=== PATIENT | male | born 1955 | race American Indian/Alaskan Native ===

== ENCOUNTER 2019-05-18 17:51 | Emergency (ER) | payer MEDICAID ==
[~2019-05-18] VITALS: Ht 182.9 cm; Wt 86.4 kg
[~2019-05-18 17:51] MED LIST: GABA-532 PO; LISI-604 PO; METF1000 PO; OMEG500C3 PO; PANT-47 PO
[2019-05-18 17:59] VITALS: BP 176/107
[2019-05-18] MEDS ORDERED: TETanus/Pertussis (Acell)/Diphther VAC/PF (Tdap-Adult) 0.5ml syringe IM ONE (19:10)
[2019-05-18] MEDS ORDERED: gentamicin 0.1% topical ointment 15gm TP SCH (19:10)
== END 2019-05-18 19:36 | disposition home or self-care (01) ==
LOC: ER 17:52
DX: S93.402A Sprain of unspecified ligament of left ankle, initial encounter (principal); S90.812A Abrasion, left foot, initial encounter; I10 Essential (primary) hypertension; E11.9 Type 2 diabetes mellitus without complications; F12.90 Cannabis use, unspecified, uncomplicated; F17.200 Nicotine dependence, unspecified, uncomplicated; Z79.899 Other long term (current) drug therapy; X50.1XXA Overexertion from prolonged static or awkward postures, initial encounter; Y93.89 Activity, other specified; Y92.89 Other specified places as the place of occurrence of the external cause; Y99.8 Other external cause status
CPT/HCPCS: 29515; 73610; 90471; 99284

== ENCOUNTER 2022-09-18 01:27 | Emergency (ER) | payer MEDICAID ==
[~2022-09-18] VITALS: Ht 182.9 cm; Wt 80.2 kg
[~2022-09-18 01:27] MED LIST changes: -LISI-604 PO; +LISI5TAB22 PO
[2022-09-18 01:35] VITALS: BP 156/70
[2022-09-18 04:17] LABS: BASOPHILS # (AUTO) 0.1 X10'3 (0-0.2); BASOPHILS % (AUTO) 0.8 % (0-1); EOSINOPHILS # (AUTO) 0.2 X10'3 (0-0.9); EOSINOPHILS % (AUTO) 2.3 % (0-6); HEMATOCRIT 44.3 % (42.0-52.0); HEMOGLOBIN 14.5 g/dl (14.0-17.9); LYMPHOCYTES # (AUTO) 2.9 X10'3 (1.1-4.8); LYMPHOCYTES % (AUTO) 30.4 % (21-51); MEAN CORPUSCULAR HGB CONC 32.8 g/dL (33.0-36.5); MEAN CORPUSCULAR VOLUME 94.3 FL (78-98); MONOCYTES # (AUTO) 0.8 X10'3 (0-0.9); MONOCYTES % (AUTO) 8.8 % (2-12); NEUTROPHILS # (AUTO) 5.5 X10'3 (1.8-7.7); NEUTROPHILS % (AUTO) 57.7 % (42-75); PLATELET COUNT 335 X10'3 (140-440); RED CELL DISTRIBUTION WIDTH 13.1 % (11.5-14.5); WHITE BLOOD COUNT 9.6 X10'3 (4.5-11.0)
[2022-09-18 04:27] LABS: ALANINE AMINOTRANSFERASE 28 U/L (12-78); ALBUMIN 4.1 G/DL (3.4-5.0); ALBUMIN/GLOBULIN RATIO 1.2 (1.1-1.5); ALKALINE PHOSPHATASE 85 IU/L (46-116); ANION GAP 12 (8-16); ASPARTATE AMINO TRANSFERASE 19 U/L (10-37); BILIRUBIN,TOTAL 0.2 MG/DL (0.1-1.0); BLOOD UREA NITROGEN 13 MG/DL (7-18); BUN/CREATININE RATIO 14.1 (5.4-32.0); CALCIUM 9.2 MG/DL (8.5-10.1); CHLORIDE 104 MMOL/L (99-107); CREATININE 0.92 MG/DL (0.60-1.10); GLUCOSE 122 MG/DL (70-104); LIPASE 366 U/L (73-393); POTASSIUM 3.9 MMOL/L (3.5-5.1); SODIUM 141 MMOL/L (135-145); TOTAL CARBON DIOXIDE 25.3 MMOL/L (24-32); TOTAL PROTEIN 7.6 G/DL (6.4-8.2); eGFR 83 ML/MIN
== END 2022-09-18 08:34 | disposition left against medical advice (07) ==
LOC: ER 01:29
DX: R10.9 Unspecified abdominal pain (principal); Z53.21 Procedure and treatment not carried out due to patient leaving prior to being seen by health care provider
CPT/HCPCS: 36415; 80053; 83690; 85025

== ENCOUNTER 2024-08-20 11:33 | Day surgery (SDC) | payer MEDICARE, MEDICAID ==
[2024-08-19 09:50] LABS: BASOPHILS # (AUTO) 0.1 X10'3 (0-0.2); BASOPHILS % (AUTO) 0.9 % (0-1); EOSINOPHILS # (AUTO) 0.1 X10'3 (0-0.9); EOSINOPHILS % (AUTO) 1.5 % (0-6); LYMPHOCYTES # (AUTO) 2.3 X10'3 (1.1-4.8); LYMPHOCYTES % (AUTO) 27.4 % (21-51); MEAN CORPUSCULAR HEMOGLOBIN 31.3 PG (27.0-31.0); MEAN CORPUSCULAR HGB CONC 33.9 g/dL (33.0-36.5); MEAN CORPUSCULAR VOLUME 92.4 FL (78-98); MEAN PLATELET VOLUME 9.3 FL (7.4-10.4); MONOCYTES # (AUTO) 0.7 X10'3 (0-0.9); MONOCYTES % (AUTO) 8.2 % (2-12); NEUTROPHILS # (AUTO) 5.1 X10'3 (1.8-7.7); PRE OP HEMATOCRIT 42.3 % (42.0-52.0); PRE OP HEMOGLOBIN 14.3 g/dL (14.0-17.9); PRE OP PLATELET COUNT 313 X10'3 (140-440); PRE OP WHITE BLOOD COUNT 8.2 10'3 (4.8-10.8); RED BLOOD COUNT 4.57 X10'6 (4.70-6.10); RED CELL DISTRIBUTION WIDTH 13.5 % (11.5-14.5)
[2024-08-19 10:02] LABS: ALBUMIN 3.9 G/DL (3.4-5.0); ALBUMIN/GLOBULIN RATIO 1.1 (1.1-1.5); ALKALINE PHOSPHATASE 74 IU/L (46-116); BLOOD UREA NITROGEN 16 MG/DL (7-18); BUN/CREATININE RATIO 12.7 (10.0-20.0); CALCIUM 9.4 MG/DL (8.5-10.1); CHLORIDE 106 MMOL/L (99-107); CREATININE 1.26 MG/DL (0.60-1.10); PRE OP ALT 41 U/L (30-65); PRE OP ANION GAP 10 (8-16); PRE OP AST 21 U/L (10-37); PRE OP BILIRUB, TOTAL 0.3 MG/DL (0.0-1.0); PRE OP GLUCOSE 189 MG/DL (70-104); PRE OP POTASSIUM 4.3 MMOL/L (3.4-5.1); PRE OP SODIUM 143 MMOL/L (135-145); TOTAL CARBON DIOXIDE 27.1 MMOL/L (24-32); TOTAL PROTEIN 7.6 G/DL (6.4-8.2); eGFR 57 ML/MIN
[~2024-08-20] VITALS: Ht 182.9 cm; Wt 79.6 kg
[2024-08-20] VITALS (8 sets, daily range): BP systolic 128–156; BP diastolic 64–86; PULSE 70–84; RESP 10–17; TEMP 97.8; O2SAT 95–100
[2024-08-20] MEDS: ceFAZolin 2gm in dextrose, iso 50 ML IV ONE (05:30)
[~2024-08-20 11:33] MED LIST changes: +ATOR20TA66 PO; +BUPR-561 PO; +EMPA25TA PO; +ERGO500093 PO; +FENO134C21 PO; +INSU100I29 SQ; -LISI5TAB22 PO; +METF-900 PO; -METF1000 PO; -OMEG500C3 PO
[2024-08-20] MEDS: famotidine 20mg tablet PO ONE (12:02)
[2024-08-20] MEDS: ringers solution, lacted 1,000 ML IV SCH (12:02)
[2024-08-20] MEDS ORDERED: sevoflurane 250ml liquid IH ONE (12:11)
[2024-08-20] MEDS ORDERED: fentaNYL/PF 50MCG/1 ML 2ML syringe ONE (12:13)
[2024-08-20] MEDS ORDERED: midazolam 1 mg/ML 2ml injection ONE (12:13)
[2024-08-20] MEDS ORDERED: meperidine/PF 25mg/ml syringe IV PRN ×3 (12:45)
[2024-08-20] MEDS ORDERED: morphine 4 MG/ML inj SYRINge IV PRN (12:45)
[2024-08-20] MEDS ORDERED: ondansetron/PF 4mg/2ml inj IV PRN (12:45)
[2024-08-20] MEDS ORDERED: ringers solution, lacted 1,000 ML IV SCH (12:45)
[2024-08-20] MEDS ORDERED: proCHLORperazine 10 MG/2 ml inj IV PRN (12:45)
[2024-08-20] MEDS ORDERED: morphine 2 MG/ML inj. syringe IV PRN (12:45)
[2024-08-20] MEDS ORDERED: propofol inj 20 ML IV ONE (13:03)
[2024-08-20] MEDS ORDERED: ondansetron/PF 4mg/2ml inj ONE (13:03)
[2024-08-20] MEDS ORDERED: rocuronium 10mg/ml inj IV ONE (13:04)
[2024-08-20] MEDS ORDERED: neostigmine methylsulfate 1 MG/ML 10ml vial ONE (13:18)
[2024-08-20] MEDS ORDERED: glycopyrrolate 0.2mg/ml inj ONE (13:18)
== END 2024-08-20 14:41 | disposition home or self-care (01) ==
LOC: PAS 11:33
PROVIDERS: ATTEND Internal Medicine Critical Care Medicine
DX: R91.1 Solitary pulmonary nodule (principal); E11.40 Type 2 diabetes mellitus with diabetic neuropathy, unspecified; K21.9 Gastro-esophageal reflux disease without esophagitis; E78.5 Hyperlipidemia, unspecified; I25.2 Old myocardial infarction; Z87.891 Personal history of nicotine dependence; Z79.84 Long term (current) use of oral hypoglycemic drugs; Z79.899 Other long term (current) drug therapy; Z90.49 Acquired absence of other specified parts of digestive tract; Z98.890 Other specified postprocedural states
CPT/HCPCS: 31623; 31624; 31627; 31628; 31629; 31653; 36415; 80053; 82948; 85025; 87015; 87070; 87102; 87116; 87206; 93005; 94760; A4618; J0690; J1100; J2250; J2405; J2704; J2710; J3010; J3490; J7120; Z7506; Z7508; Z7512; Z7610; 31622; 31625; 31654; 88108; 88173; 88305; 88313; 88341; 88342

== ENCOUNTER 2025-02-11 15:52 | Emergency (ER) | payer MEDICARE, MEDICAID ==
[~2025-02-11] VITALS: Ht 175.3 cm; Wt 75.5 kg
[~2025-02-11 15:52] MED LIST changes: -BUPR-561 PO; +BUPR-726 PO
[2025-02-11 16:02] VITALS: BP 125/80; PULSE 89; O2SAT 99
--- NOTE | 2025-02-11 16:12 | Physician Documentation ---
History of Present Illness ~ Stated Complaint: NUMBNESS Time Seen by MD: 17:35 Primary Medical Doctor: NONE Source: patient Mode of Arrival: POV Exam Limitations: no limitations HPI 69 y/o male with c/o lower back pain that radiates down left leg x 3weeks. Numbness of leg started last night. Taking flexeril and aleve "like it is cand y" which has not helped. Xray done at [facility] 2.5weeks ago. No advanced imaging. Pain severity ranges from 20/10 at worst to 8/10 at best. Currently reported to be 8/10 in severity. Patient also reports numbness on left side of face, left arm. He reports this occurred and lasted for a few minutes earlier today. Had same thing that occurred earlier this month. States speech was also "slurred." Patient did not report the numbness on left side of face or left arm in triage. No chest pain, sob, lightheadedness, syncope, headache, vision changes. Medication Reconciliation Allergies: Coded Allergies: No Known Allergies (Unverified , 10/20/10) Scheduled Atorvastatin Calcium (Atorvastatin Calcium), 1 TAB PO HS, (Reported) Bupropion HCl (Bupropion Xl), 150 MG PO QAM, (Reported) Empagliflozin (Jardiance), 25 MG PO HS, (Reported) Ergocalciferol (Vitamin D2) (Vitamin D2), 1 CAP PO Q7D, (Reported) Fenofibrate,Micronized (Fenofibrate), 1 CAP PO HS, (Reported) Gabapentin (Gabapentin), 2 CAP PO HS, (Reported) Insulin Degludec (Tresiba Flextouch U-100), 20 UNITS SQ QAM, (Reported) Metformin Hcl* (Metformin ER*), 2,000 MG PO HS, (Reported) Scheduled PRN Pantoprazole Sodium (PROTONIX tablet), 1 TAB PO DAILY PRN for indigestion/dyspepsia, (Reported) Past Medical History Past Medical History: Hypertension, Vascular Disease, Diabetes Past Surgical History: no surgical history Alcohol Use: Occasionally Drug Use: marijuana Lives In: Home Review of Systems All Other Systems at this time: Reviewed and Negative Physical Exam Physical Exam Physical Exam GENERAL: Mild distress, tearful when talking about pain. HEENT: NCAT, EOMI, PERRL, normal oropharynx, moist oral mucosa. NECK: Supple, trachea midline. CARDIAC: Regular rate and rhythm, no murmurs, rubs, or gallops. Equal distal pulses. No lower extremity edema, cap refill less than 2 seconds. RESPIRATORY: Equal breath sounds, clear to auscultation bilaterally, no respiratory distress. GASTROINTESTINAL: Non distended, soft, nontender, No guarding or rebound. MUSCULOSKELETAL: Normal range of motion, nontender, no swelling. Normal gait. NEUROLOGICAL: Major flexor and extensor muscles of LE decreased at 3-4/5 left leg. Right leg strength 5/5. Normal finger to nose. Normal heel to juarez. Ambulating without assistance, does appear to be favoring right when ambulates. Awake, alert, and oriented x 3. SKIN: Warm/dry, no pallor, no rash. PSYCH: Alert and appropriate. Affect congruent with mood. Speech is clear. Good eye contact. Progress Progress Note HEAD CT SCAN: NO ACUTE FINDINGS, PENDING OFFICIAL READ BY RADIOLOGIST EXAM: DI CHEST,SINGLE VIEW REASON FOR EXAM: Stroke Alert TECHNIQUE: 1 view of the chest COMPARISON: None FINDINGS/IMPRESSION: LUNGS: No pleural effusion, consolidation, or pneumothorax MEDIASTINUM: Unremarkable BONES: No acute osseous abnormality OTHER: None EXAM: CT Lumbar Spine Without Intravenous Contrast CLINICAL INDICATION: LOWER BACK PAIN RADIATING INTO LEFT LEG H/O FALL TECHNIQUE: Axial computed tomography images of the lumbar spine without intravenous contrast. This CT exam was performed using one or more of the following dose reduction techniques: automated exposure control, adjustment of the mA and/or kV according to patient size, and/or use of iterative reconstruction technique. CONTRAST: COMPARISON: None FINDINGS: VERTEBRAE: Moderate endplate degenerative change and disc disease of L 5 S1. Facet arthropathy of L3 to S1. No acute fracture. DISCS/SPINAL CANAL/NEURAL FORAMINA: See above. SOFT TISSUES: Unremarkable. VASCULATURE: Scattered calcified atherosclerotic disease of aorta. OTHER FINDINGS: . . IMPRESSION: No acute fracture. Results/Orders Results/Orders Orders - CHARLEY HERRERA PA Ct Lumbar Spine (02/11/25 16:24) Ct Head (02/11/25 ) [place] Prov.Neuro Consult (02/11/25 18:43) Page Hospitalist (02/11/25 19:02) Fill Out Med Reconciliation (02/11/25 19:02) Completed Orders - CHARLEY HERRERA Ct Lumbar Spine (02/11/25 16:24) Ct Head (02/11/25 ) Vital Signs 02/11/25 16:02 Temp 98.9 Pulse 89 Resp 18 B/P (MAP) 125/80 Pulse Ox 99 O2 Flow Rate 0 Laboratory Tests Test 02/11/25 17:44 White Blood Count 8.4 Red Blood Count 4.61 L Hemoglobin 13.9 L Hematocrit 41.3 L Mean Corpuscular Volume 89.6 Mean Corpuscular Hemoglobin 30.2 Mean Corpuscular Hemoglobin Concent 33.7 Red Cell Distribution Width 14.2 Platelet Count 292 Mean Platelet Volume 9.5 Neutrophils (%) (Auto) 53.5 Lymphocytes (%) (Auto) 35.6 Monocytes (%) (Auto) 7.3 Eosinophils (%) (Auto) 2.2 Basophils (%) (Auto) 1.4 H Neutrophils # (Auto) 4.5 Lymphocytes # (Auto) 3.0 Monocytes # (Auto) 0.6 Eosinophils # (Auto) 0.2 Basophils # (Auto) 0.1 CBC Comment Prothrombin Time 9.9 INR International Normalized Ratio 1.0 Activated Partial Thromboplast Time 25 Coagulation Comments Sodium Level 142 Potassium Level 3.7 Chloride Level 109 H Carbon Dioxide Level 26.3 Anion Gap 7 L Blood Urea Nitrogen 17 Creatinine 1.04 Estimated GFR/1.73 m2 71 BUN/Creatinine Ratio 16.3 Glucose Level 81 Calcium Level 9.0 Troponin I High Sensitivity 7 Albumin 3.6 Chemistry Comments Medical Decision Making Differential Dx:Considerations: Include: AAA, Aortic dissection, Appendicitis, Bowel obstruction, Cholelithiasis, Cholangitis, DJD, Fracture, Hepatitis, HNP, Musculoskeletal pain, Pancreatitis, Pyelonephritis, Renal infarction, Strain, U rinary obstruction, Urolithiasis, Urinary tract infection, Other Differential Diagnosis Patient initially came in focused on back pain 20/10 in severity which radiated into left leg. Patient's weakness in left leg was initially associated with his pain; however, upon further history taking and exam patient reported numbness left arm and left side of face that occurred earlier today as well as speech abnormalities. States that the numbness in his face, arm and speech abnormalities have resolved completely but this is what prompted him to come to ER for further evaluation. He had similar episode a few weeks ago which also resolved itself and thus he never sought out any evaluation. Departure Time of Disposition: 18:54 Disposition: 07 LEFT AGAINST MEDICAL ADVICE Admitted to Inpatient Unit: to hospitalist Impression: Primary Impression: Numbness and tingling of left arm and leg Additional Impressions: Lt facial numbness Speech abnormality Qualified Codes: R47.9 - Unspecified speech disturbances Insulin-treated type 2 diabetes mellitus Low back pain Qualified Codes: M54.50 - Low back pain, unspecified Condition: Fair Additional Instructions: RECOMMEND ADMISSION FOR TIA DUE TO UNILATERAL NUMBNESS LEFT SIDE OF BODY WHICH LASTED MINUTES AND HAS OCCURRED TWICE THIS MONTH. PATIENT HAS NEVER BEEN EVALUATED FOR THIS BEFORE AND HAS RISK FACTORS FOR TIA INCLUDING AGE, DIABETES, VASCULAR DISEASE. PATIENT ADAMANTLY REFUSED ADMISSION. WE DISCUSSED RISKS OF TIA LEADING TO STROKE WHICH COULD MEAN PERMANENT VEGETABLE LIKE STATE AND EVEN . PATIENT SHOWS GOOD UNDERSTANDING OF BENEFIT OF INTERVENTION AT THIS POINT TO POTENTIALLY PREVENT A STROKE IN THE NEAR FUTURE. I DO RECOMMEND PATIENT START AN ASPIRIN 81MG AND IF HE IS ALREADY TAKING AN ASPIRIN 81MG DAILY THEN TO INCREASE TO ASPIRIN 325MG AND FOLLOW UP PCP NEXT WEEK. WE REVIEWED SYMPTOMS OF STROKE AND IF HE WHERE TO EXPERIENCE CHANGES IN SPEECH, UNILATERAL NUMBNESS, WEAKNESS, PROBLEMS WITH BALANCE, VISION CHANGES HE IS TO CALL 911. Referrals: NO PRIMARY CARE PROVIDER (PCP) Education Educated: Patient Educated regarding: diagnosis, treatment, need for follow up Additional Comment Medical Screen Exam 69 y/o male with c/o lower back pain that radiates down left leg x 3weeks. Numbness of leg started last night. Taking flexeril and aleve "like it is candy" which has not helped. Xray done at [facility] 2.5weeks ago. No advanced imaging. Pain severity ranges from 20/10 at worst to 8/10 at best. Currently reported to be 8/10 in severity. PEx: Mild distress, tearful when talking about pain. Ambulating without assistance, does appear to be favoring right when ambulates. Major flexor and extensor muscles of LE decreased at 3-4/5 left leg. A/P: 1. LBP with radiculopathy with weakness of leg and leg pain. CT scan ordered due to h/o fall 3 weeks ago and radicular symptoms. Cauda equina considered but no bowel or bladder symptoms. The note accurately reflects work and decisions made by me.Charley GOLD 02/11/25 16:10 Signature Scribe Signature: X Attestation: CHARLEY COWAN February 11, 2025 16:12
--- NOTE | 2025-02-11 16:49 | RADIOLOGY REPORT ---
EXAM: CT Lumbar Spine Without Intravenous Contrast CLINICAL INDICATION: LOWER BACK PAIN RADIATING INTO LEFT LEG H/O FALL TECHNIQUE: Axial computed tomography images of the lumbar spine without intravenous contrast. This CT exam was performed using one or more of the following dose reduction techniques: automated exposu re control, adjustment of the mA and/or kV according to patient size, and/or use of iterative reconst ruction technique. CONTRAST: COMPARISON: None FINDINGS: VERTEBRAE: Moderate endplate degenerative change and disc disease of L 5 S1. Facet arthropathy of L3 to S1. No acute fracture. DISCS/SPINAL CANAL/NEURAL FORAMINA: See above. SOFT TISSUES: Unremarkable. VASCULATURE: Scattered calcified atherosclerotic disease of aorta. OTHER FINDINGS: . . IMPRESSION: No acute fracture.
[2025-02-11 17:00] VITALS: RESP 16
--- NOTE | 2025-02-11 17:59 | ELECTROCARDIOGRAPH REPORT ---
[facility] Test Date: 2025-02-11 Test Time: 17:56:54 Pat Name: DYLAN CARDENAS Department: [facility]-ER Patient ID: [id number] Room: Gender: M Funeral Assistant: : [id number] Requested By: GINA MOODY Order Number: [id number] Reading MD: Dr. Matias Mulligan Measurements Intervals [place] Rate: 70 P: 71 DC: 161 QRS: 38 QRSD: 93 T: 43 QT: 401 QTc: 433 Interpretive Statements Sinus rhythm Electronically Signed On 02-12-2025 11:00:[address] Matias Mulligan Please click the below link to view image of tracing.
--- NOTE | 2025-02-11 18:27 | RADIOLOGY REPORT ---
EXAM: DI CHEST,SINGLE VIEW REASON FOR EXAM: Stroke Alert TECHNIQUE: 1 view of the chest COMPARISON: None FINDINGS/IMPRESSION: LUNGS: No pleural effusion, consolidation, or pneumothorax MEDIASTINUM: Unremarkable BONES: No acute osseous abnormality OTHER: None
[2025-02-11 18:35] LABS: BASOPHILS # (AUTO) 0.1 X10'3 (0-0.2); BASOPHILS % (AUTO) 1.4 % (0-1); EOSINOPHILS # (AUTO) 0.2 X10'3 (0-0.9); EOSINOPHILS % (AUTO) 2.2 % (0-6); HEMATOCRIT 41.3 % (42.0-52.0); HEMOGLOBIN 13.9 g/dl (14.0-17.9); LYMPHOCYTES % (AUTO) 35.6 % (21-51); MEAN CORPUSCULAR HEMOGLOBIN 30.2 PG (27.0-31.0); MEAN CORPUSCULAR HGB CONC 33.7 g/dL (33.0-36.5); MEAN CORPUSCULAR VOLUME 89.6 FL (78-98); MEAN PLATELET VOLUME 9.5 FL (7.4-10.4); MONOCYTES # (AUTO) 0.6 X10'3 (0-0.9); MONOCYTES % (AUTO) 7.3 % (2-12); NEUTROPHILS # (AUTO) 4.5 X10'3 (1.8-7.7); NEUTROPHILS % (AUTO) 53.5 % (42-75); PLATELET COUNT 292 X10'3 (140-440); RED BLOOD COUNT 4.61 X10'6 (4.70-6.10); RED CELL DISTRIBUTION WIDTH 14.2 % (11.5-14.5); WHITE BLOOD COUNT 8.4 X10'3 (4.5-11.0)
[2025-02-11 18:49] LABS: ALBUMIN 3.6 G/DL (3.4-5.0); ANION GAP 7 (8-16); APTT 25 SECONDS (22-32); BLOOD UREA NITROGEN 17 MG/DL (7-18); BUN/CREATININE RATIO 16.3 (10.0-20.0); CHLORIDE 109 MMOL/L (99-107); CREATININE 1.04 MG/DL (0.60-1.10); GLUCOSE 81 MG/DL (70-104); POTASSIUM 3.7 MMOL/L (3.5-5.1); PROTHROMBIN TIME 9.9 SECONDS (9.0-12.0); SODIUM 142 MMOL/L (135-145); TOTAL CARBON DIOXIDE 26.3 MMOL/L (24-32); eCRCL 69 ML/MIN; eGFR 71 ML/MIN
--- NOTE | 2025-02-11 19:00 | RADIOLOGY REPORT ---
Procedure: CT CT HEAD [facility] Study Date and Requested Time: 02/11/2025 06:38 PM History: LEFT SIDED NUMBNESS AT 1400, RESOLVED NOW Comparison: None Dose: CTDI: 57.29 mGy DLP: 1052.24 mGycm Technique: Multiplanar images obtained through the brain without intravenous contrast. Findings: Normal brain volume and formation. Focus of hypodensity over the left high convexity frontal lobe No hemorrhages, masses, mass effect, midline shift, or herniation. No intra-axial or extra-axial flui d collections. No evidence of hydrocephalus. The basal cisterns are patent. The pituitary gland, sella and parasellar regions are unremarkable. The cerebellar tonsils are in nor mal position. The cerebellum is unremarkable. The orbits and globes are unremarkable. The paranasal sinuses and mastoids are clear. There are no wo rrisome calvarial lesions. Impression: Focus of hypodensity of the left high convexity frontal lobe which may represent an area of infarct o f unknown chronicity. MRI would be helpful for further evaluation.
[2025-02-11 19:38] VITALS: TEMP 98.9
== END 2025-02-11 19:40 | disposition left against medical advice (07) ==
LOC: ER 15:53
DX: R53.1 Weakness (principal); E11.59 Type 2 diabetes mellitus with other circulatory complications; M54.50 Low back pain, unspecified; R20.0 Anesthesia of skin; R47.9 Unspecified speech disturbances; I10 Essential (primary) hypertension; Z79.4 Long term (current) use of insulin
CPT/HCPCS: 36415; 70450; 71045; 72131; 80048; 84484; 85025; 85610; 85730; 93005; 99285